=== PATIENT | female | born 1945 | race Caucasian/White ===

== ENCOUNTER 2017-02-01 11:36 | Inpatient (IN) | payer BC ==
--- NOTE | ~2017-02-01 | HP ---
History And Physical [facility] [id number] [place]. [address] NAME: HORACE FELIZ : 47 STATUS : ADM IN [facility]#: [id number] AGE: 71 ADM/REG DATE : 02/01/17 MR#: [id number] REPORT SERV DATE: 02/01/17 DICTATED BY: VIVEK CAR DATE: 02/01/17 REPORT STATUS : Draft TRANSCRIBED BY: KIT DATE: 02/01/17 DATE OF ADMISSION: 02/01/2017 CHIEF COMPLAINT: Confusion. HISTORY OF PRESENT ILLNESS: The patient is a very pleasant 71-year-old white female, who resides with her . He states on Tuesday, she developed nausea, vomiting, and diarrhea. She has these episodes from time to time. Her PCP, Dr. Aj and her pain management doctor have prescribed her morphine suppositories and Phenergan suppositories. On Tuesday, she received two doses of both, the Phenergan and the morphine suppositories. Her nausea, vomiting, and diarrhea resolved. The next morning at around 12 a.m., she fell and got stuck between the wall and her dressing room. Her got her back to bed. She did not seem to have any injuries, but she was confused. The following day, she took her MS Contin, lorazepam, and her regular medications with no additional suppositories. She continued to be confused over the course of the weekend and today, they brought her in. They state her nausea, vomiting, and diarrhea are improved. However, she has had diminished p.o. intake. She is not drinking very much and not eating very much. They did not document any fevers at home. She had some congestion, but no new cough. No abdominal pain. No chest pain. Today since being in the ER for a few hours, she is actually much better. She is now oriented to person, place and time, and making sense. She was very coherent when I spoke with her today in the ER. She denies any neck pain. She has a headache, but she has headaches from time to time. She has not had sore throat. She has some chronic back pain which she takes narcotics for. PAST MEDICAL HISTORY: 1. Left breast cancer with lumpectomy, XRT. 2. Osteoarthritis. 3. Endometrial CA. 4. Hypertension. 5. Hypothyroidism. 6. Chronic back pain. 7. GERD. 8. Obesity. ALLERGIES: TAPE AND VALIUM. PAST SURGICAL HISTORY: 1. Partial thyroidectomy. 2. Electric stimulator placement in her back. 3. Neck surgery. 4. Lumbar spine surgery. 5. Hysterectomy. FAMILY HISTORY: Mom had some type of GI cancer. SOCIAL HISTORY: She is a nondrinker, nonsmoker. She is , she has been for 50 years. History And Physical [address] [address] NAME: HORACE FELIZ : [birth year] STATUS : ADM IN [facility]#: [id number] AGE: 71 ADM/REG DATE : 02/01/17 MR#: [id number] REPORT SERV DATE: 02/01/17 DICTATED BY: VIVEK CAR DATE: 02/01/17 REPORT STATUS : Draft TRANSCRIBED BY: KIT DATE: 02/01/17 Her is at bedside, also her daughter is at bedside. HOME MEDICATIONS: Reviewed and attached. REVIEW OF SYSTEMS: 10-point review of systems obtained. Pertinent positives are mentioned in the HPI. PHYSICAL EXAMINATION: VITAL SIGNS: T-max was 100.1, BP 139/74, pulse 84, pulse rate 16, sats 98%. GENERAL: Well-developed, obese, white female, in no apparent distress. HEENT: Normocephalic, atraumatic. Throat is clear. NECK: Supple. HEART: Regular rate and rhythm. LUNGS: Grossly clear. ABDOMEN: Soft, nontender, and nondistended. EXTREMITIES: Warm and dry. SKIN: Intact. She has no rashes or lesions. NEUROLOGIC: She is generally weak in all four extremities, but she has symmetrical tone and strength. She is alert to person, place, and time. Her speech is intact. Cranial nerves 2 through 12 are intact. LABORATORY AND X-RAY: H and H are 13.6 and 39, white count 12, platelets 284. Coags are normal. Brain CT shows no acute infarct or hemorrhage, and mild atrophy. Sodium is 136, potassium 3, chloride 101, CO2 of 21, BUN and creatinine 35 and 2.56, glucose 114, LFTs are normal. Chest x-ray is clear. Urinalysis does not reveal any white cells. ABG is 7.39/35/64. Lactate is normal at 0.7. ASSESSMENT/PLAN: 1. Acute kidney injury, likely secondary to volume depletion. Ongoing nausea, vomiting, and diarrhea with associated diminished p.o. intake. She seems improved as far as the nausea, vomiting, and diarrhea. I am going to hydrate her aggressively. Place a Hooper. Obtain a renal ultrasound. Obtain a CPK, urine electrolytes. Hold her ARB and any nephrotoxic agents. We will hydrate her aggressively overnight. Follow her urine output. 2. Low-grade fever with recent nausea, vomiting, and diarrhea which have since resolved. I am going to culture her blood and urine. Check a procalcitonin for completeness. We will follow her temperature curve. Her white count is only 12. I do not have a real source at this point. I am going to hold off on antibiotics. We will follow up on her cultures; if something declares itself, certainly we will treat it appropriately. 3. Diarrhea and vomiting, seems improved since at least Tuesday. We will follow up. If she has additional diarrhea, we will send off some stool studies. 4. Acute encephalopathy, improved currently. She is actually better than she has been. She is improved dramatically in the last 3 hours. I suspect some of this was due to the suppositories that she received in the form of morphine and Phenergan, this likely combined with some dehydration and acute kidney injury. She certainly could have had a change in to how she metabolizes to any sedating agents and they probably hung around a bit longer. I am going to hold her narcotics overnight. We will give her some History And Physical [address] [address] NAME: HORACE FELIZ : 47 STATUS : ADM IN [facility]#: [id number] AGE: 71 ADM/REG DATE : 02/01/17 MR#: [id number] REPORT SERV DATE: 02/01/17 DICTATED BY: VIVEK CAR DATE: 02/01/17 REPORT STATUS : Draft TRANSCRIBED BY: MODMildred DATE: 02/01/[address] is negative and I do not see any overt signs of meningitis. 5. History of hypertension. We will go ahead and give her antihypertensives with parameters. 6. History of gastroesophageal reflux disease. 7. DVT prophylaxis, subcutaneous heparin. 8. Disposition, pending above. KLJ/MODL Vivek Car M.D. / [id number] CC: Annelise Kiser M.D.
--- NOTE | ~2017-02-01 | DS ---
Discharge Summary [facility] [address] [place]. [address] NAME: HORACE FELIZ : 47 STATUS : DIS IN PAT#: [id number] AGE: 71 ADM/REG DATE : 02/01/17 MR#: [id number] REPORT SERV DATE: 02/05/17 DICTATED BY: ANUP NGUYEN DATE: 02/05/17 REPORT STATUS : Draft TRANSCRIBED BY: MODL DATE: 02/05/17 ADMISSION DATE: 02/01/2017 DISCHARGE DATE: 02/05/2017 FINAL DIAGNOSES: 1. Status post acute toxic encephalopathy secondary to medications. 2. Enteritis. 3. Hypertension. 4. Chronic pain. 5. Status post acute kidney injury. 6. Status post hypokalemia. 7. History of left breast cancer with lumpectomy and XRT. 8. History of endometrial cancer. 9. Hypothyroidism with partial thyroidectomy. 10.Gastroesophageal reflux disease. 11.Obesity. DIAGNOSTIC EXAMS: CAT scan of the brain without showing no acute infarct or hemorrhage, mild atrophy and chronic white matter gliosis. Chest x-ray showing no radiographic evidence of acute process. CAT scan of the abdomen and pelvis showing fluid-filled nondilated small bowel throughout the abdomen with mild hazy infiltration of the small bowel mesentery suggesting a diffuse enteritis pattern. No bowel obstruction pattern, status post hysterectomy, status post left laminectomy at L4 with posterior fusion at L4-L5, implanted generator for intraspinal neurostimulator lower thoracic spine, nonspecific diffuse hepatic steatosis pattern, contracted gallbladder. No radiodense gallstones or surrounding inflammatory changes. HOSPITAL COURSE: Please refer to the H and P done by Dr. Car dated on 02/01/2017. Briefly, this is a 71-year-old female, who comes in with confusion. The patient started having some nausea, vomiting, and diarrhea on the Tuesday prior to admission. She got morphine suppositories and Phenergan suppositories, and her symptoms resolved. However, she fell and got stuck between the wall and her dressing room and was noted to be confused. The following day, the patient continued to have confusion and the patient was sent here. The patient was monitored here and got better, but then started having some nausea, vomiting, and diarrhea again. A CAT scan was done, which shows enteritis. She was given supportive measures with fluids and electrolyte supplementation. Her nausea, vomiting, and diarrhea resolved. The patient expressed her wishes to go home. The wanted PT involved because he does not want to have her falling again and we got clearance from PT that the patient is safe to go home. The patient will now be discharged with the above diagnosis. She will be on the following medications. Norvasc is new medication at 5 mg a day, baclofen 10 mg twice a day, Neurontin 300 mg three times a day, Femara 2.5 mg a day, Ativan 1 mg twice a day, Cozaar 50 mg a day, Catapres 0.05 mg at bedtime and 0.1 mg in the morning, MS Contin 15 mg every 12 hours, Hiram 7.5/325 twice a day p.r.n., Prilosec 40 mg a day, Paxil 20 mg a day, Zocor 40 mg at bedtime, Zofran as needed, MiraLAX one packet a day, Systane one drop twice a day. Of note, the patient was also found to have an [place] when she came in at 2.56 creatinine, on discharge, it was 0.65. The patient will follow up with her PCP, . Discharge [address] [address] NAME: HORACE FELIZ : 47 STATUS : DIS IN [facility]#: [id number] AGE: 71 ADM/REG DATE : 02/01/17 MR#: [id number] REPORT SERV DATE: 02/05/17 DICTATED BY: ANUP NGUYEN DATE: 02/05/17 REPORT STATUS : Draft TRANSCRIBED BY: MODL DATE: 02/05/17 Anup Aj in one to two weeks. This has been explained to her and she agreed and understood the plan. ODILON/KIT Anup Nguyen M.D. / [id number] CC: Annelise Kiser M.D.
[2017-02-01 10:15] LABS: BASOPHILS 0.2 %; BASOPHILS ABSOLUTE 0.02 10/3/uL (0.0-0.16); EOSINOPHILS 3.4 %; EOSINOPHILS ABSOLUTE 0.41 10/3/uL (0.0-0.53); HEMATOCRIT 39.4 % (36.0-48.0); HEMOGLOBIN 13.6 g/dL (12.0-16.0); IMMATURE GRANULOCYTES 0.2 %; IMMATURE GRANULOCYTES ABSOLUTE 0.02 10/3/uL (0.0-0.11); LYMPHOCYTES 19.5 %; LYMPHOCYTES ABSOLUTE 2.34 10/3/uL (0.67-4.30); MEAN CORPUS HGB CONC 34.5 g/dL (32.0-36.0); MEAN CORPUSCULAR HEMOGLOB 28.8 pg (26.0-34.0); MEAN CORPUSCULAR VOLUME 83.3 fL (80-100); MEAN PLATELET VOLUME 8.6 fL (9.2-13.0); MONOCYTES 10.2 %; MONOCYTES ABSOLUTE 1.22 10/3/uL (0.21-1.20); NEUTROPHILS 66.5 %; NEUTROPHILS ABSOLUTE 7.98 10/3/uL (2.02-8.40); PLATELET COUNT 284 10/3/uL (150-400); RBC DISTRIBUTION WIDTH 14.3 % (12.0-16.0); RED CELL COUNT 4.73 10/6/uL (4.0-5.6)
[2017-02-01 10:16] LABS: MANUAL DIFF NO %
[2017-02-01 10:34] LABS: A/G RATIO 0.9 (0.7-1.9); ALBUMIN 3.5 G/DL (3.5-5.0); ALKALINE PHOSPHATASE 105 U/L (45-117); BUN (BLOOD UREA NITROGEN) 35 MG/DL (6-23); CALCIUM, SERUM 8.2 MG/DL (8.5-10.4); CHLORIDE, SERUM 101 MMOL/L (96-112); CO2 (CARBON DIOXIDE) 21 MMOL/L (24-34); CREATININE 2.56 MG/DL (0.55-1.02); GFR AFRICAN AMERICAN 21 ML/MIN (>=60); GFR NON AFRICAN AMERICAN 18 ML/MIN (>=60); GLOBULIN 4.1 G/DL (2.5-4.1); GLUCOSE, SERUM 114 MG/DL (60-99); SGOT(AST) 42 U/L (5-40); SGPT(ALT) 33 U/L (5-65); SODIUM, SERUM 136 MMOL/L (135-148); TOTAL BILIRUBIN 0.7 MG/DL (0-1.2); TOTAL PROTEIN 7.6 G/DL (6.0-8.5)
[2017-02-01 10:35] LABS: INTERNATIONAL NORMAL RATI 1.1 UNITS (-); PROTIME (NOT ORD) 14.1 SEC (12.0-14.5)
[2017-02-01 10:36] LABS: PARTIAL THROMBO TIME 26.3 SEC (22.5-37.2)
[2017-02-01 10:56] LABS: PROCALCITONIN 0.14 ng/mL (<0.5)
[~2017-02-01 11:36] MED LIST: AMOXIL500C PO; ATV1 PO; CAT1 PO; DSS PO; MSCONT15 PO; PHENERGAN25 MG/ML PO; PRILO PO; REG5 PO; SENTAB PO; SKELAXIN8 PO; SYSTANE OP; VICODINTAB PO; ZOCOR20 PO
[2017-02-01 11:45] LABS: ASCORBIC ACID (UR NOT ORDER) NEG (NEG); BILIRUBIN, URINE NEGATIVE (NEG); KETONE, URINE NEGATIVE (NEG); LEUKOCYTE ESTERASE(NOT OR NEG (NEG); NITRITE (URINE) NEG (NEG); WBC (NOT ORDERED) (RFLEX) 3 (0-5)
[2017-02-01 11:53] LABS: BE (BASE EXCESS) -3.8 MEQ/L (0 +/- 2.5); CARBOXYHEMOGLOBIN 1.4 % (0-3); HCO3 (ACTUAL BICARBONATE) 20.5 MEQ/L (23-27); INSTRUMENT SERIAL # 8087; METHEMOGLOBIN 0.3 % (0-3); PCO2 (CO2 TENSION) 35 MMHG (35-45); PO2 (O2 TENSION) 64 MMHG (79-93); pH 7.39 (7.37-7.43)
[2017-02-01 11:54] LABS: ALLENS TEST Pos; DEVICE ROOM AIR; O2 CONTENT 16.4 VOL% (18-24); OPERATOR ID 14382; SAMPLE Arterial
[2017-02-01 12:03] LABS: LACTATE 0.7 MMOL/L (0.3-2.4)
[2017-02-01] MEDS ORDERED: PRILOSEC40 MG PO (12:38)
[2017-02-01] MEDS ORDERED: FEMARA PO (12:38)
[2017-02-01] MEDS ORDERED: PAX20 PO (12:39)
[2017-02-01] MEDS ORDERED: ATV1 PO (12:39)
[2017-02-01] MEDS ORDERED: CAT1 PO ×2 (12:39→12:40)
[2017-02-01] MEDS ORDERED: ZOCOR40 PO (12:40)
[2017-02-01] MEDS ORDERED: NORCO1 TA2 PO (12:41)
[2017-02-01] MEDS ORDERED: COZ50 PO (12:41)
[2017-02-01] MEDS ORDERED: MSCONT15 PO (12:41)
[2017-02-01] MEDS ORDERED: NEUR300 PO (12:42)
[2017-02-01] MEDS ORDERED: LIOR10 PO (12:42)
[2017-02-01] MEDS ORDERED: ZOFRAN4 PO (12:42)
[2017-02-01] MEDS ORDERED: ADVIL PO (12:43)
[2017-02-01] MEDS ORDERED: SYSTANE OPH (12:44)
[2017-02-01] MEDS ORDERED: MIRALAX POWDER1 PKT PO (12:44)
[2017-02-01 21:45] LABS: 2009 H1N1 NOT DETECTED (NOT DETECTE); FLU A NEGATIVE (NEGATIVE); FLU B NEGATIVE (NEGATIVE)
[2017-02-01 22:09] LABS: ASCORBIC ACID (UR NOT ORDER) NEG (NEG); BILIRUBIN, URINE NEGATIVE (NEG); KETONE, URINE TRACE MG/DL (NEG); LEUKOCYTE ESTERASE(NOT OR NEG (NEG); WBC (NOT ORDERED) (RFLEX) 1 (0-5)
[2017-02-01 22:41] LABS: CREATININE, URINE 68.4 MG/DL
[2017-02-01 23:21] LABS: PHOSPHORUS, SERUM 2.2 MG/DL (2.5-4.5)
[2017-02-02 05:58] LABS: BASOPHILS 0.2 %; BASOPHILS ABSOLUTE 0.02 10/3/uL (0.0-0.16); EOSINOPHILS 4.2 %; EOSINOPHILS ABSOLUTE 0.35 10/3/uL (0.0-0.53); HEMOGLOBIN 11.7 g/dL (12.0-16.0); IMMATURE GRANULOCYTES 0.1 %; IMMATURE GRANULOCYTES ABSOLUTE 0.01 10/3/uL (0.0-0.11); LYMPHOCYTES 18.8 %; LYMPHOCYTES ABSOLUTE 1.57 10/3/uL (0.67-4.30); MEAN CORPUS HGB CONC 34.4 g/dL (32.0-36.0); MEAN CORPUSCULAR HEMOGLOB 28.5 pg (26.0-34.0); MEAN CORPUSCULAR VOLUME 82.7 fL (80-100); MEAN PLATELET VOLUME 8.5 fL (9.2-13.0); MONOCYTES 10.2 %; MONOCYTES ABSOLUTE 0.85 10/3/uL (0.21-1.20); NEUTROPHILS 66.5 %; NEUTROPHILS ABSOLUTE 5.57 10/3/uL (2.02-8.40); PLATELET COUNT 244 10/3/uL (150-400); RBC DISTRIBUTION WIDTH 14.4 % (12.0-16.0); RED CELL COUNT 4.11 10/6/uL (4.0-5.6); WHITE BLOOD CELLS 8.4 10/3/uL (4.5-10.5)
[2017-02-02 06:03] LABS: MANUAL DIFF NO %
[2017-02-02 06:10] LABS: CHLORIDE, SERUM 109 MMOL/L (96-112); CO2 (CARBON DIOXIDE) 23 MMOL/L (24-34); GFR AFRICAN AMERICAN 65 ML/MIN (>=60); GFR NON AFRICAN AMERICAN 56 ML/MIN (>=60); GLUCOSE, SERUM 104 MG/DL (60-99); POTASSIUM, SERUM 3.4 MMOL/L (3.5-5.3)
[2017-02-02 06:11] LABS: BUN (BLOOD UREA NITROGEN) 15 MG/DL (6-23); CREATININE 1.01 MG/DL (0.55-1.02); SODIUM, SERUM 143 MMOL/L (135-148)
[2017-02-03 06:42] LABS: BASOPHILS 0.1 %; BASOPHILS ABSOLUTE 0.02 10/3/uL (0.0-0.16); EOSINOPHILS 0.1 %; EOSINOPHILS ABSOLUTE 0.01 10/3/uL (0.0-0.53); HEMOGLOBIN 13.6 g/dL (12.0-16.0); IMMATURE GRANULOCYTES 0.2 %; IMMATURE GRANULOCYTES ABSOLUTE 0.03 10/3/uL (0.0-0.11); LYMPHOCYTES 6.5 %; LYMPHOCYTES ABSOLUTE 0.98 10/3/uL (0.67-4.30); MEAN CORPUSCULAR HEMOGLOB 29.2 pg (26.0-34.0); MEAN CORPUSCULAR VOLUME 81.1 fL (80-100); MONOCYTES 3.4 %; MONOCYTES ABSOLUTE 0.51 10/3/uL (0.21-1.20); NEUTROPHILS 89.7 %; NEUTROPHILS ABSOLUTE 13.63 10/3/uL (2.02-8.40); RBC DISTRIBUTION WIDTH 14.3 % (12.0-16.0); RED CELL COUNT 4.66 10/6/uL (4.0-5.6)
[2017-02-03 06:46] LABS: HEMATOCRIT 37.8 % (36.0-48.0); MANUAL DIFF NO %; PLATELET COUNT 329 10/3/uL (150-400); WHITE BLOOD CELLS 15.2 10/3/uL (4.5-10.5)
[2017-02-03 07:04] LABS: CALCIUM, SERUM 8.8 MG/DL (8.5-10.4); CHLORIDE, SERUM 106 MMOL/L (96-112); CREATININE 0.71 MG/DL (0.55-1.02); GFR AFRICAN AMERICAN 100 ML/MIN (>=60); GFR NON AFRICAN AMERICAN 86 ML/MIN (>=60); SODIUM, SERUM 138 MMOL/L (135-148)
[2017-02-03 07:12] LABS: BUN (BLOOD UREA NITROGEN) 6 MG/DL (6-23); CO2 (CARBON DIOXIDE) 14 MMOL/L (24-34); CPK 276 U/L (0-200); GLUCOSE, SERUM 157 MG/DL (60-99); PHOSPHORUS, SERUM 1.3 MG/DL (2.5-4.5); POTASSIUM, SERUM 2.9 MMOL/L (3.5-5.3)
[2017-02-04 07:11] LABS: BUN (BLOOD UREA NITROGEN) 6 MG/DL (6-23); CALCIUM, SERUM 8.1 MG/DL (8.5-10.4); CHLORIDE, SERUM 111 MMOL/L (96-112); CO2 (CARBON DIOXIDE) 21 MMOL/L (24-34); CREATININE 0.87 MG/DL (0.55-1.02); GFR AFRICAN AMERICAN 78 ML/MIN (>=60); GFR NON AFRICAN AMERICAN 67 ML/MIN (>=60); GLUCOSE, SERUM 102 MG/DL (60-99); PHOSPHORUS, SERUM 1.4 MG/DL (2.5-4.5); POTASSIUM, SERUM 3.5 MMOL/L (3.5-5.3); SODIUM, SERUM 144 MMOL/L (135-148)
[2017-02-05 06:12] LABS: BUN (BLOOD UREA NITROGEN) 3 MG/DL (6-23); CALCIUM, SERUM 7.5 MG/DL (8.5-10.4); CHLORIDE, SERUM 114 MMOL/L (96-112); CO2 (CARBON DIOXIDE) 21 MMOL/L (24-34); CREATININE 0.65 MG/DL (0.55-1.02); GFR AFRICAN AMERICAN 104 ML/MIN (>=60); GFR NON AFRICAN AMERICAN 90 ML/MIN (>=60); GLUCOSE, SERUM 89 MG/DL (60-99); POTASSIUM, SERUM 3.1 MMOL/L (3.5-5.3); SODIUM, SERUM 145 MMOL/L (135-148)
[2017-02-05 06:16] LABS: PHOSPHORUS, SERUM 2.4 MG/DL (2.5-4.5)
[2017-02-05] MEDS ORDERED: NORV5 PO (11:47)
== END 2017-02-05 12:42 | disposition home or self-care (01) | DRG 682 ==
LOC: ER 11:36 → 5SO 13:57
PROVIDERS: Emergency Medicine; Internal Medicine
DX: N17.9 Acute kidney failure, unspecified (principal); G92 Toxic encephalopathy; E86.9 Volume depletion, unspecified; I10 Essential (primary) hypertension; K21.9 Gastro-esophageal reflux disease without esophagitis; M19.90 Unspecified osteoarthritis, unspecified site; E03.9 Hypothyroidism, unspecified; G89.29 Other chronic pain; Z85.3 Personal history of malignant neoplasm of breast; E87.6 Hypokalemia; K52.9 Noninfective gastroenteritis and colitis, unspecified; Z92.3 Personal history of irradiation; Z98.890 Other specified postprocedural states; Z88.8 Allergy status to other drugs, medicaments and biological substances; Z91.013 Allergy to seafood; Z90.710 Acquired absence of both cervix and uterus; T40.2X5A Adverse effect of other opioids, initial encounter; T42.6X5A Adverse effect of other antiepileptic and sedative-hypnotic drugs, initial encounter; Z79.899 Other long term (current) drug therapy
CPT/HCPCS: 36600; 70450; 71010; 74176; 80048; 80053; 81001; 82550; 82570; 82805; 83605; 83735; 83935; 84100; 84132; 84145; 84300; 85025; 85048; 85610; 85730; 87040; 87493; 87493-59; 87631; 96374; 97161-GP; 99285; A9270-GY; G0378; J0360; J2405; J2550